=== PATIENT | male | born 1965 | race African-American/Black ===

== ENCOUNTER → 2016-10-20 | Outpatient (CLI) | payer MEDICARE, OTHER | LOC: EMI 10-15 16:15 | DX: M54.2 Cervicalgia (principal); M43.12 Spondylolisthesis, cervical region; M50.321 Other cervical disc degeneration at C4-C5 level | CPT/HCPCS: 72141 ==

== ENCOUNTER 2020-12-18 00:45 | Observation (INO) | payer MEDICARE, OTHER ==
[~2020-12-18] VITALS: Ht 165.1 cm; Wt 104.3 kg
[2020-12-18] MEDS ORDERED: GABAPENTIN800 MG PO (03:56)
[2020-12-18] MEDS ORDERED: IBUPROFEN800 MG PO (04:57)
[2020-12-18] MEDS ORDERED: LEVOTHYROXINE112 MCG PO (04:57)
[2020-12-18] MEDS ORDERED: METFORMIN HCL500 MG PO (04:58)
[2020-12-18] MEDS ORDERED: PRAVASTATIN SOD10 MG PO (04:58)
[2020-12-18] MEDS ORDERED: TRAZODONE HCL100 MG PO (04:59)
[2020-12-18] MEDS ORDERED: TRESIBA FL100 UNIT/1 SQ (05:00)
[2020-12-18] MEDS ORDERED: ASPIRIN EC81 MG PO (05:02)
[2020-12-18] MEDS ORDERED: HYDROCODONE-AC1 EAC1 PO (05:02)
[2020-12-18] MEDS ORDERED: VICTOZA 1818 MG/3 ML SC (05:03)
[2020-12-18] MEDS ORDERED: PROTONIX 40 MG40 M1 PO (13:07)
[2020-12-18] MEDS ORDERED: LISINOPRIL10 MG PO (13:12)
== END 2020-12-18 13:51 | disposition home or self-care (01) ==
LOC: MED SURG 4 02:08
PROVIDERS: ADMIT Internal Medicine
DX: R07.89 Other chest pain (principal); I10 Essential (primary) hypertension; E11.9 Type 2 diabetes mellitus without complications; E78.5 Hyperlipidemia, unspecified; E03.9 Hypothyroidism, unspecified; F41.9 Anxiety disorder, unspecified; F17.210 Nicotine dependence, cigarettes, uncomplicated; J02.9 Acute pharyngitis, unspecified; Z82.49 Family history of ischemic heart disease and other diseases of the circulatory system; Z20.822 Contact with and (suspected) exposure to COVID-19
CPT/HCPCS: 36415; 82550; 82553; 82962; 84484; 87081; 87880; 93005; G0378; G0379; U0002